=== PATIENT | female | born 1985 | race Caucasian/White ===

== ENCOUNTER 2021-11-16 17:15 | Observation (INO) ==
[2021-11-16] MEDS ORDERED: LACTATED RINGER'S 1,000 ML IV PRN (17:49)
[2021-11-16] MEDS ORDERED: OXYTOCIN 30 UNITS/500 ML BAG IV PRN (17:49)
--- NOTE | 2021-11-16 17:55 | History & Physical Report ---
Date of Service November 16, 2021 Assessment & Plan (1) : Plan: Admit in early labor History of Present Illness Chief Complaint: labor Primary Care Provider: Leland Taylor, 36 F P1001 at 37.3 weeks presents to L&D in labor. Allergies Allergy/AdvReac Type Severity Reaction Status Date / Time Bactrim Allergy Mild V/N/RASH Verified 04/10/16 13:38 dicyclomine Allergy Mild N/V/RASH Verified 11/12/21 20:18 latex Allergy Mild RASH Verified 11/12/21 20:18 meperidine Allergy Mild VOMIT AND Verified 11/12/21 20:18 TROUBLE BREATHING metronidazole Allergy Mild N/V/ RASH Verified 11/12/21 20:18 prednisone Allergy Mild SEVERE Verified 11/12/21 20:18 ANXIETY sulfamethoxazole [Bactrim] Allergy Mild V/N/RASH Verified 11/12/21 20:18 trimethoprim [Bactrim] Allergy Mild V/N/RASH Verified 11/12/21 20:18 nickel Allergy Hives Verified 11/12/21 20:18 flu vaccine Allergy Anaphylaxis Uncoded 11/12/21 20:39 Home Medications Medication Instructions Recorded Confirmed Type prenat.vits,olu,[id number] 1 tab PO DAILY 11/12/21 11/12/21 History Patient History Medical History Anxiety Asthma Depression History of stomach ulcers Surgical History H/O dilation and curettage [place] teeth removed Social History Smoking Status: Never smoker Hx Alcohol Use: No Hx Substance Use: No Preferred Language: Rwandan Communication Ability: Effective 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 Beliefs That Will Affect Care: None marital status: Current Living Situation: Spouse and Family Feels Safe at Home: Yes Assistive Devices: Contacts 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 Review of Systems All systems reviewed & are unremarkable except as noted in HPI & below Physical Exam Constitutional: WD/WN, vitals as above comfortable Eyes: PERRL, conjunctivae normal, anicteric sclerae Respiratory: normal respiratory effort, lungs clear to auscultation Cardiovascular: RRR, no murmur, no edema Skin: no rashes, warm and dry Psychiatric: A+Ox3, euthymic affect Genitourinary: Manual OB Exam: + cervical dilation 3 cm and 4 cm, + cervical effacement 60% and + station -2 OB Exam Monitor Tracing: + external FHT monitor used, + external uterine monitor used, + category I and + normal FHT variability Results & Data ([facility]) Vital Signs (Past 12 Hours) Vital Signs Pulse BP Pulse Ox 11/16/21 17:35 108 H 97 11/16/21 17:30 105 H 98 11/16/21 17:27 98 H 120/78 11/16/21 17:25 93 H 100 Laboratory Results GBS is negative Code Status & VTE Plan VTE Prophylaxis Plan VTE Prophylaxis will be ordered: No Monitoring External Monitor Cat 1
[2021-11-16 18:24] LABS: Hematocrit (blood only) 36.7 % (37-47); Mean Corpuscular Hemoglobin 28.2 pg (25-34); Mean Corpuscular Hgb Conc 32.7 g/dL (32-36); Mean Corpuscular Volume 86.2 fL (80-100); Platelet Count 206 K/uL (130-400); RDW Coefficient of Variation 15.4 % (11.5-14.5); RDW Standard Deviation 48.4 fL (36.4-46.3); Red Blood Count 4.26 M/uL (4.2-5.4)
--- NOTE | 2021-11-16 21:24 | Labor Progress Brief Note ---
Date of Service November 16, 2021 Assessment & Plan Admission and Anticipated Discharge Date Admission Date: November 16, 2021 Physical Exam Genitourinary: Manual OB Exam: + cervical dilation 3 cm, + cervical effacement 70% and + station -2 OB Exam Monitor Tracing: + external FHT monitor used, + external uterine monitor used and + category I will ambulate to see if she will increase intensity of contractions Results & Data ([facility]) Vital Signs (Past 12 Hours) Vital Signs Pulse Resp BP Pulse Ox 11/16/21 17:35 108 H 97 11/16/21 17:30 105 H 98 11/16/21 17:27 98 H 120/78 11/16/21 17:25 93 H 100 11/16/21 17:23 18
--- NOTE | 2021-11-16 23:33 | Labor Progress Brief Note ---
Date of Service November 16, 2021 Assessment & Plan Admission and Anticipated Discharge Date Admission Date: November 16, 2021 Physical Exam Genitourinary: Manual OB Exam: + cervical dilation 3 cm, + cervical effacement 70% and + station -2 OB Exam Monitor Tracing: + external FHT monitor used, + external uterine monitor used, + category I and + normal FHT variability cervix remains unchanged. Will discharge home not in active labor. Results & Data ([facility]) Vital Signs (Past 12 Hours) Vital Signs Pulse Resp BP Pulse Ox 11/16/21 17:35 108 H 97 11/16/21 17:30 105 H 98 11/16/21 17:27 98 H 120/78 11/16/21 17:25 93 H 100 11/16/21 17:23 18
--- NOTE | 2021-11-21 11:19 | Discharge Summary (DS) ---
DATE OF ADMISSION: 11/16/2021 DATE OF DISCHARGE: 11/16/2021 HOSPITAL COURSE: She is a 36-year-old female, para 1-0-0-1, at 37 weeks and 3 days, presents in jayden y labor. The patient had been seen prior to this on 11/13 and 11/12 and was discharged home, not in active labor. The patient was seen, had several labor checks and had no significant change. She rem ained at 3 cm in early labor and was discharged home with a category 1 strip, not in active labor. H ospital course was unremarkable. CONDITION ON DISCHARGE: Stable. DIET: Regular diet on discharge. MEDICATIONS: Include continuing her vitamins. Follow up as needed or if in labor. Job ID: [id number]
== END 2021-11-16 23:42 | disposition home or self-care (01) ==
LOC: OPB 17:15 → 4S1 17:17 → INTOOBSV 17:49 → 4S1 17:49

== ENCOUNTER 2021-11-17 15:05 | Inpatient (IN) ==
[2021-11-17] MEDS ORDERED: OXYTOCIN 30 UNITS/500 ML BAG IV PRN ×2 (15:40→23:12)
[2021-11-17] MEDS ORDERED: LACTATED RINGER'S 1,000 ML IV PRN (15:40)
[2021-11-17 16:08] LABS: Hematocrit (blood only) 33.4 % (37-47); Hemoglobin 11.2 g/dL (12.0-16.0); Mean Corpuscular Hemoglobin 28.3 pg (25-34); Mean Corpuscular Volume 84.3 fL (80-100); Mean Platelet Volume 10.7 fL (7.4-10.4); Platelet Count 191 K/uL (130-400); RDW Standard Deviation 46.6 fL (36.4-46.3); Red Blood Count 3.96 M/uL (4.2-5.4)
[2021-11-17 16:21] LABS: Mean Corpuscular Hgb Conc 33.5 g/dL (32-36)
--- NOTE | 2021-11-17 16:34 | History & Physical Report ---
Date of Service November 17, 2021 Assessment & Plan (1) Amniotic fluid leaking: Plan: Patient is a 36-year-old -0-1-1 at 37 weeks and 4 days of gestation presenting with spontaneous rupture of membranes at term and contractions, Vital signs stable afebrile, heart rate reassuring, GBS negative, Head ballotable on pelvic exam, Plan to admit, monitor, expectant management and anticipate . All questions were answered. (2) Uterine contractions at greater than 20 weeks of gestation: Admission and Anticipated Discharge Date Admission Date: November 17, 2021 History of Present Illness Primary Care Provider: Leland Taylor DO Patient is a 36-year-old -0-1-1 at 37 weeks and 4 days of gestation who has been feeling contractions for the last few days and they got more regular slides and she presented to labor and delivery. After few hours of observation her cervix did not change and she was sent home. She went for shopping at [employer] this afternoon and had a gush of fluid leakage at 12:45 PM. Her contractions got more regular and painful and she presented to the office where rupture of membranes were confirmed. She was sent here for admission. She has been leaking clear fluid since then and her contractions are not very painful now and she wants to ambulate. She denies epidural for pain and does not plan to get 1. Her has been uncomplicated except, 1. AMA, 2. Maternal asthma, 3. TPTL Allergies Allergy/AdvReac Type Severity Reaction Status Date / Time Bactrim Allergy Mild V/N/RASH Verified 04/10/16 13:38 dicyclomine Allergy Mild N/V/RASH Verified 11/16/21 17:56 latex Allergy Mild RASH Verified 11/16/21 17:56 meperidine Allergy Mild VOMIT AND Verified 11/16/21 17:56 TROUBLE BREATHING metronidazole Allergy Mild N/V/ RASH Verified 11/16/21 17:56 prednisone Allergy Mild SEVERE Verified 11/16/21 17:56 ANXIETY sulfamethoxazole [Bactrim] Allergy Mild V/N/RASH Verified 11/16/21 17:56 trimethoprim [Bactrim] Allergy Mild V/N/RASH Verified 11/16/21 17:56 nickel Allergy Hives Verified 11/16/21 17:56 flu vaccine Allergy Anaphylaxis Uncoded 11/16/21 17:56 Home Medications Medication Instructions Recorded Confirmed Type prenat.vits,olu,oph-hmjo-fomow 1 tab PO DAILY 11/12/21 11/17/21 History Patient History Medical History Anxiety Asthma Depression History of stomach ulcers Surgical History H/O dilation and curettage [place] teeth removed Social History Smoking Status: Never smoker Do You Dip or Chew Tobacco: No; Hx Alcohol Use: No Hx Substance Use: No Preferred Language: Cameroonian Communication Ability: Effective Communication Ability Comment: pt wearing contacts 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 Genitourinary: normal external appearance Manual OB Exam: + cervical dilation (Grossly leaking clear amniotic fluid) 4 cm (4-5), + cervical effacement 40% and + station high (Ballotable) OB Exam Monitor Tracing: + external uterine monitor used and + category I Results & Data ([facility]) Vital Signs (Past 12 Hours) Vital Signs Temp Pulse Resp BP 11/17/21 16:24 94 H 123/79 11/17/21 15:18 36.8 C 109 H 18 120/76 11/17/21 15:13 109 H 120/76 Laboratory Results Lab Results 11/17/21 11/17/21 Range/Units 16:01 Unknown WBC 11.50 H (4.8-10.8) K/uL RBC 3.96 L (4.2-5.4) M/uL Hgb 11.2 L (12.0-16.0) g/dL Hct 33.4 L (37-47) % MCV 84.3 (80-100) fL MCH 28.3 (25-34) pg MCHC 33.5 (32-36) g/dL RDW Std Deviation 46.6 H (36.4-46.3) fL RDW Coeff of Donnie 15.0 H (11.5-14.5) % Plt Count 191 (130-400) K/uL MPV 10.7 H (7.4-10.4) fL SARS-CoV-2, RNA, NAAT NEGATIVE (NEGATIVE)
--- NOTE | 2021-11-17 21:21 | Obstetrical Progress Note ---
Date of Service November 17, 2021 Assessment & Plan Admission and Anticipated Discharge Date Admission Date: November 17, 2021 Subjective Patient has been walking around and feeling mild irregular contractions. They are not painful yet. Vaginal exam, cervix is 5 cm dilated, 50% effaced, -2 station, offered her AROM of 4 back and she accepted. AROM to clear fluid. Recommended augmentation with oxytocin but patient declined she wants expectant management for now. Discussed the increased risk of intermittent infection with prolonged phase of labor. Patient understands and wants to think about it and then decide. heart rate reassuring. All questions were answered. Results & Data ([facility]) Vital Signs (Past 12 Hours) Vital Signs Temp Pulse Resp BP 11/17/21 20:41 36.7 C 16 11/17/21 19:05 36.7 C 100 H 18 122/72 11/17/21 18:50 107 H 122/74 11/17/21 18:46 36.8 C 18 11/17/21 16:24 94 H 123/79 11/17/21 15:18 36.8 C 109 H 18 120/76 11/17/21 15:13 109 H 120/76
--- NOTE | 2021-11-18 00:43 | Obstetrical Progress Note ---
Date of Service November 18, 2021 Assessment & Plan Admission and Anticipated Discharge Date Admission Date: November 17, 2021 Subjective Patient is reevaluated. She has been very painful since AROM. She declined pain management including epidural. Vital signs stable afebrile, heart rate reassuring, contractions every 3 to 4 minutes. Vaginal exam, cervix is 5 to 6 cm dilated, 70% effaced, head at -1 station, anterior fontanelle is at 1 o'clock position, occipitoposterior, Patient desires expectant management and declines epidural, Continue to monitor closely. Results & Data ([facility]) Vital Signs (Past 12 Hours) Vital Signs Temp Pulse Resp BP 11/17/21 22:51 36.7 C 16 11/17/21 20:41 36.7 C 16 11/17/21 19:05 36.7 C 100 H 18 122/72 11/17/21 18:50 107 H 122/74 11/17/21 18:46 36.8 C 18 11/17/21 16:24 94 H 123/79 11/17/21 15:18 36.8 C 109 H 18 120/76 11/17/21 15:13 109 H 120/76
[2021-11-18] MEDS ORDERED: BUTORPHANOL TARTRATE 1 MG/ML VIAL IV PRN (01:13)
[2021-11-18] MEDS ORDERED: LIDOCAINE 1% LOCAL 20 ML VIAL ONE ×2 (02:53→02:58)
[2021-11-18] MEDS ORDERED: HYDROCORTISONE ACETATE 25 MG SUPP PR PRN (03:18)
[2021-11-18] MEDS ORDERED: IBUPROFEN 600 MG TAB PO PRN (03:18)
[2021-11-18] MEDS ORDERED: OXYTOCIN 30 UNITS/500 ML BAG IV PRN (03:18)
[2021-11-18] MEDS ORDERED: DIPHTHERIA/TETANUS/PERTUSSIS 0.5 ML SYR/VIAL IM ONE (03:18)
[2021-11-18] MEDS ORDERED: bisacodyL 10 MG SUPP PR PRN (03:18)
[2021-11-18] MEDS ORDERED: BENZOCAINE 20% AER SPR 82.5 GM CAN EXT PRN (03:18)
[2021-11-18] MEDS ORDERED: SUPERCREAM 0.870% 15 GM JAR EXT PRN (03:18)
[2021-11-18] MEDS ORDERED: MEASLES, MUMPS & RUBELLA VIRUS VIAL SQ ONE (03:18)
--- NOTE | 2021-11-18 03:36 | Delivery Summary ---
Vaginal Delivery Summary Date of Service November 18, 2021 Vaginal Delivery Summary Patient was found to be fully dilated and desire to push. she pushed through 2 contractions and delivered the head without difficulty. There was a nuchal cord around the neck x1 which was reduced. The shoulders were delivered with minimal traction and baby was handed off to the mother where mouth and nose were suctioned. Baby was moving and vigorously crying. The cord was clamped x2 and cut at 1 minute delay. The cord blood was obtained. And the vagina and perineum were checked for lacerations. There was a small second- degree perineal laceration at the posterior fourchette. Rectal exam was done and excellent sphincter tone was noted. The gloves were changed. The placenta was found to be in the vagina delivered spontaneously as intact and complete. Uterus was explored and found to be empty, lower segment was cleared of all clots and debris's. Fundus was firm and EBL was 200 mL. Lidocaine was used for local anesthesia. The laceration was repaired with 2-0 Vicryl in a running running locked fashion and the skin in a subcuticular fashion. Excellent hemostasis was achieved. Mom and baby tolerated procedure well, baby was a viable male infant, Apgars 8/9 and weight is pending. No complications happened and I was present during whole procedure. At the end of the procedure the sponge, needle, instrument counts was correct x2.
[2021-11-18] MEDS: ACETAMINOPHEN 325 MG TAB PO PRN ×4 (04:27→23:40)
[2021-11-18] MEDS: DOCUSATE SODIUM 100 MG CAP PO SCH ×2 (08:36→19:53)
[2021-11-18] MEDS: FERROUS SULFATE 325 MG TAB PO SCH (08:37)
[2021-11-18] MEDS: PRENATAL VITAMIN 1 TAB PO SCH (08:37)
[2021-11-19] MEDS: ACETAMINOPHEN 325 MG TAB PO PRN (05:25)
[2021-11-19] MEDS: FERROUS SULFATE 325 MG TAB PO SCH (07:24)
[2021-11-19] MEDS: PRENATAL VITAMIN 1 TAB PO SCH (07:24)
[2021-11-19 07:46] LABS: Hematocrit (blood only) 30.8 % (37-47); Mean Corpuscular Hemoglobin 28.2 pg (25-34); Mean Corpuscular Hgb Conc 32.5 g/dL (32-36); Mean Corpuscular Volume 86.8 fL (80-100); Mean Platelet Volume 10.7 fL (7.4-10.4); Platelet Count 176 K/uL (130-400); RDW Coefficient of Variation 15.7 % (11.5-14.5); RDW Standard Deviation 49.6 fL (36.4-46.3); Red Blood Count 3.55 M/uL (4.2-5.4); White Blood Count 9.99 K/uL (4.8-10.8)
--- NOTE | 2021-11-19 09:23 | Obstetrical Progress Note ---
Date of Service November 19, 2021 Assessment & Plan Admission and Anticipated Discharge Date Admission Date: November 17, 2021 Subjective Patient is seen and examined. She feels well, no complaints. Desires d/c today Ambulating without dizziness Voiding without difficulty Tolerating regular diet with out N&V Bleeding is minimal No fever/ chills/ CP/ SOB/ N&V/ Leg pain Breast feeding without problems Vital Signs Temp Pulse Resp BP Pulse Ox 11/19/21 07:45 36.6 C 84 16 107/71 97 11/18/21 23:35 36.9 C 86 16 113/76 97 11/18/21 19:50 37.1 C 94 H 16 106/72 98 11/18/21 15:55 36.6 C 87 20 111/77 98 11/18/21 12:45 36.8 C 94 H 20 101/67 98 Lab Results 11/17/21 11/17/21 11/19/21 Range/Units 16:01 Unknown 07:06 WBC 11.50 H 9.99 (4.8-10.8) K/uL RBC 3.96 L 3.55 L (4.2-5.4) M/uL Hgb 11.2 L 10.0 L (12.0-16.0) g/dL Hct 33.4 L 30.8 L (37-47) % MCV 84.3 86.8 (80-100) fL MCH 28.3 28.2 (25-34) pg MCHC 33.5 32.5 (32-36) g/dL RDW Std Deviation 46.6 H 49.6 H (36.4-46.3) fL RDW Coeff of Donnie 15.0 H 15.7 H (11.5-14.5) % Plt Count 191 176 (130-400) K/uL MPV 10.7 H 10.7 H (7.4-10.4) fL SARS-CoV-2, RNA, NAAT NEGATIVE (NEGATIVE) PE: General: Alert, orientedx3, NAD Abd: soft, NT, fundus firm, below Umbilicus Perineum intact, Lochia rubra minimal Ext; NT, no edema AP: 36 yo s/p , ppd# 1 VSS Afebrile doing well Continue routine care All questions were answered Discussed contraception Discussed when to call D/C home , f/u in office Results & Data ([facility]) Vital Signs (Past 12 Hours) Vital Signs Temp Pulse Resp BP Pulse Ox 11/19/21 07:45 36.6 C 84 16 107/71 97 11/18/21 23:35 36.9 C 86 16 113/76 97
[2021-11-19] MEDS ORDERED: bisacodyL 5 MG TABEC PO SCH (20:00)
== END 2021-11-19 10:15 | disposition home or self-care (01) | DRG 807 ==
LOC: OPB 15:05 → 4S1 15:06 → 4N 11-18 05:50 → 4S2 11-18 16:08